=== PATIENT | male | born 1955 | race Caucasian/White ===

== ENCOUNTER 2019-11-19 00:19 | Emergency (ER) | payer BC ==
[~2019-11-19] VITALS: Ht 167.6 cm; Wt 115.7 kg
[2019-11-19 01:08] LABS: HEMATOCRIT 40.6 % (42.0-52.0); HEMOGLOBIN 13.4 gm/dL (14.0-18.0); MCH 30.8 pg (26.0-34.0); MCV 93.1 fL (80.0-100.0); PLATELET COUNT 177 thou/uL (150-400); RBC 4.36 mil/uL (4.50-6.00); RDW 13.2 % (10.5-14.5); WBC 6.5 thou/uL (4.0-11.0)
[2019-11-19 01:12] LABS: CALCIUM 9.7 mg/dL (8.5-10.1); POTASSIUM 3.4 mmol/L (3.5-5.1)
[2019-11-19 01:48] LABS: ABSOLUTE NEUTROPHILS 5.1 thou/uL (1.4-8.2); ATYPICAL LYMPHS 1 %; LARGE PLATELETS OCCASIONAL
[2019-11-19] MEDS ORDERED: NAPROSYN500 MG PO (02:24)
[2019-11-19] MEDS ORDERED: AMITRIPTYLINE H10 M1 PO (02:24)
[2019-11-19] MEDS ORDERED: AMLODIPINE-BEN1 EACH PO (02:25)
[2019-11-19] MEDS ORDERED: SIMVASTATIN80 MG PO (02:26)
[2019-11-19] MEDS ORDERED: SERTRALINE HCL50 MG PO (02:27)
[2019-11-19] MEDS ORDERED: ZOCOR 20 MG TAB20 M1 PO (02:28)
[2019-11-19] MEDS ORDERED: KEFLEX500 M1 PO (02:30)
[2019-11-19 03:05] VITALS: BP 130/73
== END 2019-11-19 03:05 | disposition home or self-care (01) ==
LOC: ER 00:19
PROVIDERS: Emergency Medicine
DX: L03.116 Cellulitis of left lower limb (principal); G43.909 Migraine, unspecified, not intractable, without status migrainosus; Z88.1 Allergy status to other antibiotic agents; Z88.0 Allergy status to penicillin; Z88.8 Allergy status to other drugs, medicaments and biological substances

== ENCOUNTER → 2020-06-25 | Outpatient (CLI) | payer BC ==
[~2020-06-25] MED LIST: AMITRIPTYLINE H10 M1 PO; AMLODIPINE-BEN1 EACH PO; KEFLEX500 M1 PO; NAPROSYN500 MG PO; SERTRALINE HCL50 MG PO; SIMVASTATIN80 MG PO; ZOCOR 20 MG TAB20 M1 PO
== END ==
LOC: LAB 11:39
PROVIDERS: ATTEND Family Medicine
DX: U07.1 COVID-19 (principal); Z88.0 Allergy status to penicillin; Z88.8 Allergy status to other drugs, medicaments and biological substances